=== PATIENT | male | born 1980 | race Caucasian/White ===

== ENCOUNTER 2021-06-17 12:14 | Emergency (ER) | payer OTHER ==
[~2021-06-17 12:14] MED LIST: ASPIRIN CHEWABL81 MG PO; BACITRACIN3.5 GM TOP; VISTARIL25 MG PO
[2021-06-17] MEDS ORDERED: LISINOPRIL20 MG PO (12:46)
== END 2021-06-17 12:50 | disposition home or self-care (01) ==
LOC: ER1 12:14
DX: Z76.0 Encounter for issue of repeat prescription (principal); I10 Essential (primary) hypertension; F17.200 Nicotine dependence, unspecified, uncomplicated
CPT/HCPCS: 99281

== ENCOUNTER 2021-06-23 16:40 | Emergency (ER) | payer OTHER ==
[~2021-06-23 16:40] MED LIST changes: +LISINOPRIL20 MG PO
[2021-06-23 17:16] LABS: HEMOGLOBIN 15.4 gm/dl (14.0-17.5); RED BLOOD COUNT 4.94 M/UL (4.20-5.50); WHITE BLOOD COUNT 16.3 K/UL (4.5-11.0)
[2021-06-23 17:43] LABS: BUN/CREATININE RATIO 11 (0-10)
[2021-06-23] MEDS ORDERED: ZOFRAN ODT 4 MG4 MG PO (22:58)
[2021-06-23] MEDS ORDERED: IMODIUM CAP 2 MG2 MG PO (23:01)
== END 2021-06-23 23:14 | disposition home or self-care (01) ==
LOC: ER1 16:40
PROVIDERS: Physician Assistant
DX: R10.9 Unspecified abdominal pain (principal); R11.2 Nausea with vomiting, unspecified; F17.200 Nicotine dependence, unspecified, uncomplicated; F19.10 Other psychoactive substance abuse, uncomplicated; I10 Essential (primary) hypertension; R10.814 Left lower quadrant abdominal tenderness
CPT/HCPCS: 80053; 81001; 85025; 99284; Q9967

== ENCOUNTER 2021-06-25 03:42 | Emergency (ER) | payer OTHER ==
[~2021-06-25 03:42] MED LIST changes: +IMODIUM CAP 2 MG2 MG PO; +ZOFRAN ODT 4 MG4 MG PO
== END 2021-06-25 04:18 | disposition left against medical advice (07) ==
LOC: ER1 03:42
DX: R10.9 Unspecified abdominal pain (principal); R11.2 Nausea with vomiting, unspecified; R19.7 Diarrhea, unspecified; I10 Essential (primary) hypertension
CPT/HCPCS: 99283

== ENCOUNTER 2021-06-25 05:50 | Emergency (ER) | payer OTHER ==
[2021-06-25 06:37] LABS: HEMOGLOBIN 15.9 gm/dl (14.0-17.5); RED BLOOD COUNT 5.22 M/UL (4.20-5.50); WHITE BLOOD COUNT 15.7 K/UL (4.5-11.0)
[2021-06-25 07:08] LABS: BUN/CREATININE RATIO 14 (0-10)
== END 2021-06-25 10:25 | disposition home or self-care (01) ==
LOC: ER1 05:50
PROVIDERS: Physician Assistant
DX: R10.9 Unspecified abdominal pain (principal); I10 Essential (primary) hypertension; F17.200 Nicotine dependence, unspecified, uncomplicated; Z20.822 Contact with and (suspected) exposure to COVID-19
CPT/HCPCS: 80053; 80307; 81001; 85025; 99284; U0002

== ENCOUNTER 2021-07-31 21:55 | Emergency (ER) | payer OTHER ==
[2021-08-01] MEDS ORDERED: MUCINEX100 MG PO (00:33)
== END 2021-08-01 00:38 | disposition home or self-care (01) ==
LOC: ER1 21:55
DX: J06.9 Acute upper respiratory infection, unspecified (principal); F17.210 Nicotine dependence, cigarettes, uncomplicated; Z20.822 Contact with and (suspected) exposure to COVID-19
CPT/HCPCS: 0240U; 87081; 87880; 99283

== ENCOUNTER → 2021-10-16 | Outpatient (CLI) | payer OTHER ==
[~2021-10-16] MED LIST changes: +MUCINEX100 MG PO
== END ==
LOC: EXRD 15:10
DX: M25.562 Pain in left knee (principal); M17.12 Unilateral primary osteoarthritis, left knee
CPT/HCPCS: 73564

== ENCOUNTER → 2022-03-07 | Outpatient (CLI) | payer OTHER | LOC: RAD 17:20 | DX: R05.9 Cough, unspecified (principal); M54.2 Cervicalgia; M54.6 Pain in thoracic spine; M54.50 Low back pain, unspecified; M47.812 Spondylosis without myelopathy or radiculopathy, cervical region; M47.814 Spondylosis without myelopathy or radiculopathy, thoracic region | CPT/HCPCS: 71046; 72040; 72070; 72100 ==